=== PATIENT | male | born 1990 ===

== ENCOUNTER 2024-07-09 00:55 | Emergency (ER) | payer OTHER ==
[~2024-07-09] VITALS: Ht 177.8 cm; Wt 91.4 kg
[2024-07-09 01:04] VITALS: TEMP 98.4
--- NOTE | 2024-07-09 05:22 | Physician Documentation ---
History of Present Illness ~ General Chief Complaint: Rash Stated Complaint: PAIN Time Seen by MD: 07:03 History of Present Illness Initial Comments 34 year old male reports rash to his groin. Unable to say whether it itches or hurts. Tangential answers to questions. Medication Reconciliation Allergies: Coded Allergies: paroxetine (Unverified Allergy, Unknown, 07/09/24) sertraline (Unverified Allergy, Unknown, 07/09/24) Review of Systems All Other Systems at this time: Reviewed and Negative Physical Exam Physical Exam Vital Signs: RN Vital Signs have been reviewed: Yes, Temperature: 98.4, Heart Rate: 84, Respiratory Rate: 19, BP: 144/85, Pulse Oximetry: 99, Weight: 91.360 Physical Exam Gen: disheveled HEENT: PERRL, moist oral mucosa, EOMI Pulmonary: No respiratory distress MSK: no deformity Skin: w/d/i, no rash Neuro: alert, nonfocal Psych: flat affect, tangential and/or nonsequiter answers to questions. Progress Progress Note Doctor Trisha I received this patient in sign-out wanted evaluation for a rash. However he had declined exam. He had slept last few hours and I was recommend to re-evaluate. I evaluated the patient and he reports wanting to leave. He states that his rash is fine that he does not want it evaluated. He is planning to continue hitchhiking Results/Orders Results/Orders Vital Signs 07/09/24 07/09/24 07/09/24 01:04 06:00 06:04 Temp 98.4 Pulse 84 96 Resp 19 16 18 B/P (MAP) 144/85 114/77 (89) Pulse Ox 99 99 O2 Flow Rate 0 Medical Decision Making Findings 34 year old male with complaint of rash to groin but patient would not allow me to examine his groin. Explained that I could not diagnose or help him without examining the rash. Requested coffee and water. Counseled, discharged with return precautions. Differential Diagnosis Ddx = tinea corporis, STI, contact dermatitis, cellulitis Departure Disposition: HOME / SELF CARE / HOMELESS Impression: Primary Impression: Skin irritation Condition: Stable Discharge Instructions: Rash, Adult Referrals: NO PRIMARY CARE PROVIDER (PCP) Education Educated: Patient Educated regarding: diagnosis, treatment, need for follow up Signature Scribe Signature: . Attestation: . OSORIO GARZON MD July 09, 2024 05:22 MAGDALENA JACQUES MD July 09, 2024 07:48
[2024-07-09 06:04] VITALS: BP 114/77; PULSE 96; RESP 18; O2SAT 99
== END 2024-07-09 07:47 | disposition home or self-care (01) ==
LOC: ER 00:57
DX: R21 Rash and other nonspecific skin eruption (principal); Z88.8 Allergy status to other drugs, medicaments and biological substances
CPT/HCPCS: 99281